=== PATIENT | male | born 1945 | race Caucasian/White ===

== ENCOUNTER 2017-03-10 13:40 | Emergency (ER) | payer OTHER ==
[~2017-03-10] VITALS: Ht 170.2 cm; Wt 80.0 kg
[~2017-03-10 13:40] MED LIST: AMLO-147 PO; ASPI81TA3 PO; BACTDS PO; HYDR-2059 PO; NORT25CA PO; SULF1TAB80 PO; TAMS-14 PO; ZOLP10TA PO
[2017-03-10 13:42] VITALS: Ht 170.2 cm; Wt 80.0 kg
[2017-03-10] MEDS ORDERED: TRAM50TA2 PO (14:29)
[2017-03-10] MEDS ORDERED: traMADol 50 MG TAB PO ONE (14:30)
--- NOTE | 2017-03-10 14:32 | ERD ---
ER Documentation Chief Complaint Date/Time DATE: 03/10/17 TIME: 14:30 Chief Complaint WANTS PROSTATE CHECK, HAS APPOIMENT IN 4 MOS, REPORTED PAIN X 2 WEEKS SCROT HPI 71-year-old male presents requesting a recheck of his prostate. Diagnosed by his primary doctor for prostatitis and is early in the course of 2 weeks prescription for Bactrim.. He has been on Flomax and finasteride for many months. He is able to urinate. He denies any fevers. He has pain in his perineal area. Denies any dysuria, penile discharge or testicular pain or swelling. ROS All systems reviewed and are negative except as per history of present illness. Medications Home Meds Active Scripts Tramadol HCl (Tramadol HCl) 50 Mg Tablet, 50 MG PO Q4 Y for PAIN, #20 TAB Prov:DHAVAL RUIZ MD 03/10/17 Sulfamethoxazole-Trimethoprim* (Bactrim* DS) 800-160 Mg Tab, 1 TAB PO BID for 21 Days, #42 TAB Prov:IZABELA BROWNE DO 06/24/16 Tamsulosin Hcl* (Flomax*) 0.4 Mg Cap.er.24h, 0.4 MG PO QPM, #30 CAP Prov:IZABELA BROWNE DO 06/24/16 Aspirin (Aspirin) 81 Mg Chew, 81 MG PO DAILY for 30 Days, TAB OTC Prov:KANDACE REDDY 02/14/16 Reported Medications Sulfamethoxazole-Trimethoprim* (Bactrim* SS) 400-80 Mg Tab, 1 TAB PO DAILY, #20 TAB 02/13/16 Hydrocodone Bit-Acetaminophen* (Hydrocodone-APAP*) 10-325 Tablet, 1 TAB PO QID Y for SEVERE PAIN LEVEL 7-10, TAB 02/13/16 Zolpidem Tartrate* (Ambien*) 10 Mg Tablet, 10 MG PO QHS Y for INSOMNIA, TAB 02/13/16 Nortriptyline Hcl* (Nortriptyline Hcl*) 25 Mg Capsule, 25 MG PO DAILY, CAP 02/13/16 Amlodipine Besylate* (Amlodipine Besylate*) 10 Mg Tablet, 10 MG PO DAILY 01/23/14 Allergies Allergies: Coded Allergies: No Known Allergy (Unverified , 5/30/16) PMhx/Soc History of Surgery: No Anesthesia Reaction: No Hx Neurological Disorder: No Hx Respiratory Disorders: No Hx Cardiac Disorders: Yes (htn) Hx Psychiatric Problems: No Hx Miscellaneous Medical Probl: Yes (HTN) Hx Alcohol Use: No Hx Substance Use: No Hx Tobacco Use: No Physical Exam Vitals Vital Signs Date Time Temp Pulse Resp B/P Pulse Ox O2 Delivery O2 Flow Rate FiO2 03/10/17 13:42 98.2 62 18 134/61 99 Physical Exam Const: [] Alert, [id number] per Head: Atraumatic Eyes: Normal Conjunctiva ENT: Normal External Ears, Nose and Mouth. Neck: Full range of motion..~ No meningismus. Resp: Clear to auscultation bilaterally Cardio: Regular rate and rhythm, no murmurs Abd: Soft, non tender, non distended. Normal bowel sounds. Rectal exam shows no external lesions or abscesses. There is some mildly tender enlarged prostate without appreciable dominant nodules. Skin: No petechiae or rashes Back: No midline or flank tenderness Ext: No cyanosis, or edema Neur: Awake and alert Psych: Normal Mood and Affect Results 24 hrs Current Medications Medications (Trade) Dose Ordered Sig/Igor Route PRN Reason Start Time Stop Time Status Last Admin Dose Admin Tramadol HCl (Ultram) 50 mg ONCE ONCE PO 03/10/17 14:30 03/10/17 14:31 Procedures/MDM Patient presents with signs and symptoms of mild prostatitis without evidence of abscess, sepsis or genital emergencies. He will be discharged home with the addition of tramadol for pain and instructions to continue his Bactrim and Flomax and finasteride. Patient has a urology appointment pending in the next few months and should keep his appointment. He will return for fevers, worsening abdominal pain, new worsening symptoms or as directed with urology. The patient was stable with no new complaints during the ER course. Clinically, there is no current evidence to suggest meningitis, sepsis, acute abdomen, pneumonia, acute coronary syndrome, pulmonary embolism, or any other emergent condition appearing to require further evaluation or hospitalization. The patient should certainly return for any new or worsening symptoms per the aftercare instructions. They should otherwise follow-up with her primary care doctor for reevaluation this week. Departure Diagnosis: Primary Impression: Prostatitis Prostatitis type: acute Qualified Code: N41.0 - Acute prostatitis Condition: Stable Patient Instructions: Prostatitis Additional Instructions: Examines normal hoy. Cheque otro vez con jacobo doctor primario en el proximo peterson or regresa para mas o nueva simptomas. DHAVAL RUIZ MD Mar 10, 2017 14:32
== END 2017-03-10 15:16 | disposition home or self-care (01) ==
LOC: FTE 13:40
DX: N41.0 Acute prostatitis (principal); I10 Essential (primary) hypertension; Z79.82 Long term (current) use of aspirin
CPT/HCPCS: 99283

== ENCOUNTER 2017-09-19 04:47 | Emergency (ER) | END 2017-09-19 17:09 | disposition home or self-care (01) ==